=== PATIENT | female | born 1985 | race Caucasian/White ===

== ENCOUNTER → 2023-09-04 03:15 | Outpatient (CLI) | payer MEDICAID, SELFPAY ==
--- NOTE | 2023-09-04 07:15 | DI.MAMMO_ITS ---
Exam(s) US BREAST LT COMPLETE US BREAST RT COMPLETE MG MAMMO DIAGNOSTIC BI EXAM: MG MAMMO DIAGNOSTIC BI COMPLETE BILATERAL BREAST ULTRASOUND CLINICAL HISTORY: breast tenderness, pain,n64.4. TECHNIQUE: Both CC and MLO bilateral mammographic images were obtained with 3D tomosynthesis technAngel Medical Systems ue and utilizing computer aided detection (CAD). Complete bilateral breast ultrasound was performed including all 4 quadrants of both breasts as well as both axillary regions. COMPARISON: None. This is a baseline mammogram on this 37-year-old patient. She was complaining of breast pain and apparently her providers felt some peripherally located lumps in both breasts. The patient did not present to her provider with a self detected breast lump. FINDINGS: DIAGNOSTIC BILATERAL MAMMOGRAM: Fibroglandular tissue pattern is moderately dense. There are no CAD designations. There are no spiculated masses nor malignant-appearing microcalcification groups in either breast. No significant architectural distortion or skin thickening-retraction. THE BILATERAL BREAST ULTRASOUND: No evidence of solid or significant cystic lesions in all 4 quadrants. Scanning of the most lateral aspect of the breasts did not reveal significant focal findings including no evidence of prominent la teral thoracic lymph nodes. Scanning of both axillary regions is negative for adenopathy. IMPRESSION: 1. No radiographic evidence of malignancy. 2. Negative complete bilateral breast ultrasound The patient was informed of the findings by myself prior to leaving the department today. BI-RADS Category 1 - Negative Breast Density - Category C - Heterogeneously dense Breast density Category C or D implies that the patient has dense breast tissue. Dense breast tissue can make it harder to find cancer on a mammogram. Dense breast tissue is also associated with an incr eased risk of breast cancer. This information about the result of the mammogram report was provided to the patient to raise their awareness. Use this report when you speak with the patient about their risks for breast cancer, which includes their family history. At that time, you may recommend additional screening tests (Ultrasoun d or MRI) as these tests may add significant information. A negative radiographic report should not delay biopsy if a dominant or clinically suspicious mass is present. Up to ten percent of cancers are not identified on mammography. A negative report may reinforce clinical impression. Adenosis and dense breasts may obscure an underlying neoplasm. False positive reports average 6 to 10%. Patient will receive a letter notifying them of these results.
== END ==
PROVIDERS: PCP Nurse Practitioner Family; Visit Provider Nurse Practitioner Family
DX: N64.4 Mastodynia (principal); Z12.31 Encounter for screening mammogram for malignant neoplasm of breast
CPT/HCPCS: 76642; 77062; 77066; G0279

== ENCOUNTER 2023-12-13 09:51 | Outpatient (CLI) | payer MEDICAID, SELFPAY ==
--- NOTE | 2023-12-13 09:45 | RT.EKG_ITS ---
APPROVED REPORT Exam: Resting ECG Reason for Exam: on methadone Patient Location: O HR:77 bpm ECG Measurements Heart Rate 77 AXIS [place] 147 P 8 QRSd 99 QRS 1 QT 384 T 11 QTc 435 Conclusion Sinus rhythm...normal P axis, V-rate 50- 99 Normal Electrocardiogram
== END 2023-12-13 09:52 | disposition home or self-care (01) ==
LOC: DI.CM 09:59
PROVIDERS: PCP Nurse Practitioner Family; Visit Provider Nurse Practitioner Family
DX: R55 Syncope and collapse (principal)
CPT/HCPCS: 93010

== ENCOUNTER 2023-12-13 09:54 | Outpatient (CLI) | payer MEDICAID, SELFPAY ==
[2023-12-13 12:10] LABS: HCT 39.1 % (36.0-46.0); HGB 12.9 g/dL (11.2-15.7); MCH 29.8 pg (27.0-33.0); MCV 90 fL (80-95); MPV 11.7 fL (8.0-11.0); Platelet Count 249 10^3/uL (130-400); RBC 4.33 10^6/uL (3.93-5.22); RDW-SD 42.6 fL; WBC 4.36 10^3/uL (4.4-10.8)
[2023-12-13 12:20] LABS: Hemoglobin A1C 5.3 % (<5.7)
[2023-12-13 12:51] LABS: ALT 25 U/L (14-59); AST 16 U/L (15-37); Albumin 3.6 g/dL (3.4-5.0); Alkaline Phosphatase 85 U/L (46-116); Anion Gap 10.6 mmol/L (3-11); BUN 8 mg/dL (7-18); Bilirubin, Total 0.27 mg/dL (0.2-1.0); CO2 23.4 mmol/L (21.0-32.0); CREATININE 0.9 mg/dL (0.55-1.02); Calcium 8.9 mg/dL (8.5-10.1); Chloride 105 mmol/L (98-107); Estimated GFR 84.97 (mL/min/1.73m2); Glucose 105 mg/dL (74-106); Potassium 4.4 mmol/L (3.5-5.1); Sodium 139 mmol/L (136-145); TSH (W/Ref FT4) 2.55 uIU/mL (0.36-3.74); Total Protein 6.6 g/dL (6.4-8.2)
== END 2023-12-13 09:55 | disposition home or self-care (01) ==
LOC: LOS 09:54
PROVIDERS: PCP Nurse Practitioner Family; Referring Provider Nurse Practitioner Family; Visit Provider Nurse Practitioner Family
DX: R55 Syncope and collapse (principal); R11.2 Nausea with vomiting, unspecified; K59.09 Other constipation
CPT/HCPCS: 36415; 80053; 85027; 83036; 84443

== ENCOUNTER 2024-02-29 15:47 | Outpatient (REF) | payer MEDICAID, SELFPAY ==
--- NOTE | 2024-02-29 15:46 | PAPFT_PTH ---
PATIENT: Dana Disla LOC: [facility] U#:[id number] AGE/SX: 38/F ROOM: RE02/29/[address]: Lamar Martino MD : 1985 BED: DIS: 02/29/2024 SPEC #: [id number] RECD: 03/01/24 13:40 STATUS: SARMAD REDeepti #: [id number] OLLIE: 02/29/24 15:[address]: Lamar Martino DEPT: [facility] Cytology RECD BY: Miriam Mello ENTERED: 03/01/24 13:40 SP TYPE: PAPFT OTHR DR: Fidel Velazquez DNP Tissues: 1 - CX/ENDOCX FOR PAP SMEARS Procedures: PAP THIN PREP/UVM Screening HPV DNA PROBE Comments: [id number] (HPVF 16 & 18/45)
== END 2024-02-29 15:48 | disposition home or self-care (01) ==
LOC: LBN 15:47
PROVIDERS: PCP Nurse Practitioner Family; Visit Provider Obstetrics & Gynecology
DX: N92.0 Excessive and frequent menstruation with regular cycle (principal); Z31.69 Encounter for other general counseling and advice on procreation; Z13.21 Encounter for screening for nutritional disorder; Z01.419 Encounter for gynecological examination (general) (routine) without abnormal findings; Z87.42 Personal history of other diseases of the female genital tract
CPT/HCPCS: 88142; 87624

== ENCOUNTER 2024-03-05 11:01 | Outpatient (CLI) | payer MEDICAID, SELFPAY ==
[2024-03-05 12:22] LABS: Abs Immature Grans 0.01 10^3/uL (0.0-0.06); Absolute Basophil Count 0.07 10^3/uL (0.0-0.2); Absolute Eosinophil Count 0.13 10^3/uL (0.0-0.7); Absolute Lymphocyte Count 1.91 10^3/uL (1.2-3.4); Absolute Monocyte Count 0.46 10^3/uL (0.1-0.8); Absolute Neutrophil Count 3.01 10^3/uL (1.2-6.7); Basophils % 1.3 %; Eosinophils % 2.3 %; HCT 37.1 % (36.0-46.0); HGB 12.7 g/dL (11.2-15.7); Immature Grans % 0.2 %; Lymphocytes % 34.2 %; MCH 29.8 pg (27.0-33.0); MCHC 34.2 % (32.0-36.0); MCV 87 fL (80-95); MPV 11.8 fL (8.0-11.0); Monocytes % 8.2 %; Neutrophils % 53.8 %; Platelet Count 293 10^3/uL (130-400); RBC 4.26 10^6/uL (3.93-5.22); RDW 12.8 % (11.7-14.6); RDW-SD 40.3 fL; WBC 5.59 10^3/uL (4.4-10.8)
[2024-03-05 12:35] LABS: ALT 31 U/L (14-59); AST 16 U/L (15-37); Alkaline Phosphatase 99 U/L (46-116); Anion Gap 11.4 mmol/L (3-11); BUN 12 mg/dL (7-18); Bilirubin, Total 0.49 mg/dL (0.2-1.0); CO2 24.6 mmol/L (21.0-32.0); CREATININE 0.8 mg/dL (0.55-1.02); Calcium 9.2 mg/dL (8.5-10.1); Chloride 102 mmol/L (98-107); Estimated GFR 97.87 (mL/min/1.73m2); Glucose 125 mg/dL (74-106); Potassium 4.2 mmol/L (3.5-5.1); Sodium 138 mmol/L (136-145); Total Protein 7.2 g/dL (6.4-8.2)
[2024-03-05 12:51] LABS: TSH (W/Ref FT4) 1.65 uIU/mL (0.36-3.74); Vitamin D 25 Total 13.4 ng/mL (30-100)
[2024-03-05 18:29] LABS: Estradiol 56 pg/mL (See Note)
[2024-03-05 18:39] LABS: Prolactin 10.2 ng/mL (See Note)
== END 2024-03-05 11:02 | disposition home or self-care (01) ==
LOC: LOS 11:01
PROVIDERS: Obstetrics & Gynecology; PCP Nurse Practitioner Family; Visit Provider Nurse Practitioner Family
DX: R10.2 Pelvic and perineal pain (principal); N92.0 Excessive and frequent menstruation with regular cycle; Z31.69 Encounter for other general counseling and advice on procreation; N92.6 Irregular menstruation, unspecified; Z13.21 Encounter for screening for nutritional disorder
CPT/HCPCS: 36415; 80053; 82306; 82670; 83001; 84146; 84443; 85025

== ENCOUNTER 2024-03-05 15:18 | Outpatient (REF) | payer MEDICAID, SELFPAY ==
[2024-03-05 21:41] LABS: Bilirubin Negative (Negative); Blood Negative (Negative); Clarity Turbid (Clear); Glucose Negative (Negative); Ketones Negative (Negative); Leukocyte Esterase Negative (Negative); Nitrite Negative (Negative); Specific Gravity >= 1.030 (1.005-1.025); Urobilinogen 0.2 mg/dL (Up to 0.2)
== END 2024-03-05 15:19 | disposition home or self-care (01) ==
LOC: LBN 15:18
PROVIDERS: PCP Nurse Practitioner Family; Visit Provider Nurse Practitioner Family
DX: R39.9 Unspecified symptoms and signs involving the genitourinary system (principal); R10.2 Pelvic and perineal pain
CPT/HCPCS: 81003

== ENCOUNTER 2024-03-12 00:50 | Outpatient (CLI) | payer MEDICAID, SELFPAY ==
--- NOTE | 2024-03-12 07:30 | DI.US_ITS ---
Exam(s) US RENAL PELVIC TRANSVAGINAL EXAM: US RENAL PELVIC TRANSVAGINAL CLINICAL HISTORY: INFERTILITY COUNSELING,INCOMPLETE BLADDER EMPTYING,Z31.69,R33.9 TECHNIQUE: Ultrasound of the pelvis was performed both transabdominal and transvaginal. COMPARISON: US US BREAST LT COMPLETE from 09/04/2023 FINDINGS: KIDNEYS: Both kidneys exhibit normal size, cortical thickness, and corticomedullary differentiation. There are no renal cysts nor solid renal masses. No calculi. No hydronephrosis. No perinephric fl uid. URINARY BLADDER: Prevoid volume 113 cc. Postvoid volume 4 cc. Bladder wall thickness is upper zahra l. No obvious masses nor obvious calculi in the urinary bladder. No intraluminal sludge. Both uret erovesical jets were identified. UTERUS: Anteverted Measures 5.5 cm length x 3.5 cm AP x 5.9 cm wide. There are no uterine fibroids. Endometrial thickness measures 10-11 mm and exhibits homogeneous echotexture. There is no fluid in t he endometrial canal. CERVIX: There are no obvious nabothian cysts. RIGHT OVARY: Measures 2.8 x 1.9 x 2.3 cm Small sub cm follicular cysts noted in the right ovary. No solid masses. LEFT OVARY: Measures 3x 2.7 x 2.7 cm No significant cysts nor masses evident in the left ovary. There is a 1.3 x 1.4 cm cyst in the left ovary. Probably follicular. CUL-DE-SAC: No free fluid evident. IMPRESSION: 1. Normal appearing uterus and age-appropriate endometrium. 2. No abnormal ovarian findings. 13 x 14 mm cyst in the left ovary is probably dominant follicle 3. No free fluid in the pelvis. 4. No significant ultrasound findings in the kidneys and urinary bladder. DATA REPOSITORY:
== END 2024-03-12 01:10 ==
LOC: DI 00:50
PROVIDERS: PCP Nurse Practitioner Family; Visit Provider Obstetrics & Gynecology
DX: Z31.69 Encounter for other general counseling and advice on procreation (principal); R33.9 Retention of urine, unspecified
CPT/HCPCS: 76770; 76830; 76856

== ENCOUNTER 2024-05-12 17:29 | Emergency (ER) | payer MEDICAID, SELFPAY ==
[2024-05-12 17:31] VITALS: BP 136/79; PULSE 90; RESP 20; TEMP 36.6; O2SAT 98
[2024-05-12 17:34] VITALS: BP 136/79; PULSE 90; RESP 20; TEMP 36.6; O2SAT 98
--- OUTSIDE RECORDS SUMMARY | 2024-05-12 17:40 | XMS_ITS | Encounter Summary ---
Author Organization [facility] Address [address] [place] [address] Care Team Providers Care Warehouse Shipping Clerk Name Role Phone Unavailable Primary Care Provider Unavailabl e Encounter Details Date Type Department Care Team (Late st Contact Info) Description 03/04/2024 Lab Requisition [facility] Pathology & Laboratory Medicine - [facility] [address] [place] [address] Lamar Martino MD [address] [place] [address] [place] [address] Encounter for other general examination Social History Tobacco Use Types Packs/Day Years Used Date Smoking Tobacco: Never Assessed Comments Unknown Sex and Gender Information Value Date Recorded Sex Assigned at Not on file Legal Sex Female 15:57 EST Gender Identity Not on file Sexual Orientation Not on file documented as of this encounter Plan of Treatment Not on file documented as of this encounter Procedures Procedure Name Priority Date/Time Associated Diagnosis Comments PAP TEST Today 02/29/2024 15:46 EST Encounter for other general examination HPV DNA DETECTION WITH GENOTYPING, PCR Today 02/29/2024 15:46 EST Encounter for other general examination documented in this encounter Results * HPV DNA DETECTION WITH GENOTYPING, PCR (02/29/2024 15:46 EST) HPV High Risk type 16, PCR Negative Negative 03/12/2024 13:51 EST [facility] HPV High Risk type 18, PCR Negative Negative 03/12/2024 13:51 EST [facility] HPV other High Risk types, PCR Negative Negative 03/12/2024 13:51 EST [facility] Comment: The following Other High Risk HPV types were not detected: ??31,33, 35, 39, 45, 51, 52, 56, 58, 59, 66 and 68. Pap Test CERVIX UTERI STRUCTURE / Unknown 02/29/2024 15:46 EST 03/11/2024 11:16 EST us Lamar Martino MD MICROBIOLOGY - GENERAL ORDER WILEY Final Result [facility] [address] [place] [address] * PAP TEST (02/29/2024 15:46 EST) Specimens A. Cervix and/or Endocervix , ThinPrep Imaging System with Manual Evaluation 03/12/2024 13:51 [facility] Specimen Adequacy Satisfactory for Evaluation - transformation zone component present 03/12/2024 13:51 [facility] General Categorization Negative for intraepithelial lesion or malignancy 03/12/2024 13:51 [facility] Descriptive Diagnosis Shift in giovanny present suggestive of bacterial vaginosis. 03/12/2024 13:51 [facility] Attestation . 03/12/2024 13:51 [facility] at 1351 Clinical History See below 03/12/20 13:51 [facility] Performing Lab [facility] 03/12/2024 13:51 [facility] Scanned Images 03/12/2024 13:51 [facility] HPV High Risk type 16, PCR Negative 03/12/2024 13:51 [facility] HPV High Risk type 18, PCR Negative 03/12/2024 13:51 [facility] HPV Other High Risk Types, PCR Negative The following Other High Risk HPV types were not detected: 31,33, 35, 39, 45, 51, 52, 56, 58, 59, 66 and 68. 03/12/2024 13:51 [facility] Pap Test CERVIX UTERI STRUCTURE / Unknown 02/29/2024 15:46 EST 03/04/2024 15:58 EST us Lamar Martino MD PATHOLOGY ORDERABLES Final R esult [facility] [address] [place] [id number] documented in this encounter Visit Diagnoses Diagnosis Encounter for other general examination documented in this encounter
--- OUTSIDE RECORDS SUMMARY | 2024-05-12 17:40 | XMS_ITS | Referral Summary ---
Author Organization [facility] Address [address] [place] [address] Care Team Providers Care Director Health Name Role Phone Unavailable Primary Care Provider Unavailabl e Encounters Date Type Department Care Team Description 03/05/2024 Lab Requisition [facility] Pathology & Laboratory [facility] [address] [place] [address] Outr Resulting Lab, Provider 03/04/2024 Lab Requisition [facility] Pathology & Laboratory [address] [address] Lamar Martino MD Encounter for other general examination from Last 3 Months Social History Tobacco Use Types Packs/Day Years Used Date Smoking Tobacco: Never Assessed Comments Unknown Sex and Gender Information Value Date Recorded Sex Assigned at Not on file Legal Sex Female 15:57 EST Gender Identity Not on file Sexual Orientation Not on file Plan of Treatment Not on file Procedures Procedure Name Priority Date/Time Associated Diagnosis Comments FSH Routine 03/05/2024 11:10 EST PROLACTIN Routine 03/05/2024 11:10 EST ESTRADIOL, ADULTS Routine 03/05/2024 11: 10 EST PAP TEST Today 02/29/2024 15:46 EST Encounter for other general examination HPV DNA DETECTION WITH GENOTYPING, PCR Today 02/29/2024 15:46 EST Encounter for other general examination from Last 3 Months Results * PROLACTIN (03/05/2024 11:10 EST) Prolactin 10.2 See Note ng/mL 03/05/2024 18:34 EST [facility] Comment: NOTE: Female Reference Ranges: PHYSIOLOGICAL STATUS ?REFERENCE RANGE ? Postmenopausal ?1.8 - 20.3 ng/mL ?9.7 - 208.5 ng/mL Non- ?2.8 - 29.2 ng/mL Blood VENOUS BLOOD / Unknown 03/05/2024 11:10 EST 03/05/2024 17:47 EST us Provider Outr Resulting Lab CHEMISTRY & BLOOD GA S ORDERABLES Final Result [facility] [address] [place] [address] * ESTRADIOL, ADULTS (03/05/2024 11:10 EST) Estradiol 56 See Note pg/mL 03/05/2024 18:24 EST [facility] Comment: NOTE: FEMALE REFERENCE RANGES: MENSTRUATING ? By cycle day relative to LH peak Follicular ?(-12 to -4 days) ??20-144 pg/mL Midcycle ?(-3 to +2 days) ?? 64-357 pg/mL Luteal ?(+4 to +12 days) ??56-214 pg/mL POSTMENOPAUSAL ?<32 pg/mL *Cross reactivity with Fulvestrant could lead to a falsely elevated estradiol result in patients treated with this drug. Blood VENOUS BLOOD / Unknown 03/05/2024 11:10 EST 03/05/2024 17:47 EST us Provider Outr Resulting Lab CHEMISTRY & BLOOD GA S ORDERABLES Final Result Performing Organization Address [facility] Co de Phone Number [facility] [address] [place] [address] * FSH (03/05/2024 11:10 EST) FSH 14.0 See Note mIU/mL 03/05/2024 18:34 EST [facility] Blood VENOUS BLOOD / Unknown 03/05/2024 11:10 EST 03/05/2024 17:47 EST Narrative [facility] - 03/05/2024 18:34 EST NOTE: Female FSH Reference Ranges (Menstruating): PHYSIOLOGICAL STATUS ? REFERENCE RANGE ? Follicular (-12 to -4 days): ?? 2.5 - 10.2 mIU/mL Midcycle (-3 to +2 days): ?3.4 - 33.4 mIU/mL Luteal (+4 to +12 days): ? 1.5 - 9.1 mIU/mL Postmenopausal: ?23.0 - 116.3 mIU/mL Reference Ranges for pediatric non-menstruating female patients have not been established. Provider Outr Resulting Lab CHEMISTRY & BLOOD GA S ORDERABLES Final Result Performing Organization Address City/[facility]/ZIP Co de Phone Number [facility] [address] [place], [place] [id number] * PAP TEST (02/29/2024 15:46 EST) Specimens A. Cervix and/or Endocervix , ThinPrep Imaging System with Manual Evaluation 03/12/2024 13:51 EST [facility] Specimen Adequacy Satisfactory for Evaluation - transformation zone component present 03/12/2024 13:51 [facility] General Categorization Negative for intraepithelial lesion or malignancy 03/12/2024 13:51 [facility] Descriptive Diagnosis Shift in giovanny present suggestive of bacterial vaginosis. 03/12/2024 13:51 [facility] Attestation . 03/12/2024 13:51 [facility] at 1351 Clinical History See below 03/12/20 13:51 [facility] Performing Lab [facility] 03/12/2024 13:51 [facility] Scanned Images 03/12/2024 13:51 [facility] HPV High Risk type 16, PCR Negative 03/12/2024 13:51 [facility] HPV High Risk type 18, PCR Negative 03/12/2024 13:51 [facility] HPV Other High Risk Types, PCR Negative The following Other High Risk HPV types were not detected: 31,33, 35, 39, 45, 51, 52, 56, 58, 59, 66 and 68. 03/12/2024 13:51 [facility] Pap Test CERVIX UTERI STRUCTURE / Unknown 02/29/2024 15:46 EST 03/04/2024 15:58 EST us Lamar Martino MD PATHOLOGY ORDERABLES Final R esult [facility] [address] [place] [phone] * HPV DNA DETECTION WITH GENOTYPING, PCR (02/29/2024 15:46 EST) HPV High Risk type 16, PCR Negative Negative 03/12/2024 13:51 [facility] HPV High Risk type 18, PCR Negative Negative 03/12/2024 13:51 [facility] HPV other High Risk types, PCR Negative Negative 03/12/2024 13:51 [facility] Comment: The following Other High Risk HPV types were not detected: ??31,33, 35, 39, 45, 51, 52, 56, 58, 59, 66 and 68. Pap Test CERVIX UTERI STRUCTURE / Unknown 02/29/2024 15:46 EST 03/11/2024 11:16 EST us Lamar Martino MD MICROBIOLOGY - GENERAL ORDER WILEY Final Result [facility] [address] [place] [address] from Last 3 Months
--- OUTSIDE RECORDS SUMMARY | 2024-05-12 17:40 | XMS_ITS | Encounter Summary ---
Author Organization [facility] Address [address] [place] [address] Care Team Providers Care Dance Hall Host/Hostess Name Role Phone Unavailable Primary Care Provider Unavailabl e Encounter Details Date Type Department Care Team (Late st Contact Info) Description 03/05/2024 Lab Requisition [facility] Pathology & Laboratory Medicine - [facility] [address] [place] [address] Outr Resulting Lab, Provider Social History Tobacco Use Types Packs/Day Years [...] Procedure Name Priority Date/Time Associated Diagnosis Comments PROLACTIN Routine 03/05/2024 11:10 EST ESTRADIOL, ADULTS Routine 03/05/2024 11: 10 EST FSH Routine 03/05/2024 11:10 EST documented in this encounter Results * FSH (03/05/2024 11:10 EST) FSH 14.0 See Note mIU/mL 03/05/2024 18:34 EST [facility] Blood VENOUS BLOOD / Unknown 03/05/2024 11:10 EST 03/05/2024 17:47 EST Narrative [facility] - 03/05/2024 18:34 EST [...] non-menstruating female patients have not been established. us Provider Outr Resulting Lab CHEMISTRY & BLOOD GA S ORDERABLES Final Result Performing Organization Address [facility]/State/ZIP Co de Phone Number [facility] [address] [place] [address] * PROLACTIN (03/05/2024 11:10 EST) [facility] Prolactin 10.2 See Note ng/mL 03/05/2024 18:34 EST [facility] Comment: NOTE: Female Reference Ranges: PHYSIOLOGICAL STATUS ?REFERENCE RANGE ? Postmenopausal ?1.8 - 20.3 ng/mL ?9.7 - 208.5 ng/mL Non- ?2.8 - 29.2 ng/mL Blood VENOUS BLOOD / Unknown 03/05/2024 11:10 EST 03/05/2024 17:47 EST us Provider Outr Resulting Lab CHEMISTRY & BLOOD GA S ORDERABLES Final Result Performing Organization Address [facility]/ZIP Co de Phone Number [facility] [address] [place] [address] * ESTRADIOL, ADULTS (03/05/2024 11:10 EST) Estradiol 56 See Note pg/mL 03/05/2024 18:24 EST [facility] Comment: NOTE: FEMALE REFERENCE [...] S ORDERABLES Final Result Performing Organization Address [facility]/ZIP Co de Phone Number [facility] [address] [place] [address] documented in this encounter Visit Diagnoses Not on filedocumented in this encounter
--- OUTSIDE RECORDS SUMMARY | 2024-05-12 17:40 | XMS_ITS | Clinical Summary ---
Author Organization [facility] Address [address] [place] [address] Care Team Providers Care Mat Making Machine Tender Name Role Phone Unavailable Primary Care Provider Unavailabl e Encounters Date Type Department Care Team Description 03/05/2024 Lab Requisition [facility] Pathology & Laboratory [address] [address] Outr Resulting Lab, Provider 03/04/2024 Lab Requisition [facility] Pathology & Laboratory [address] [address] Lamar Martino MD Encounter for other general examination from Last 3 Months Social History Tobacco Use Types Packs/Day Years Used Date Smoking Tobacco: Never Assessed Comments Unknown Sex and Gender Information Value Date Recorded Sex Assigned at Not on file Legal Sex Female 15:57 EST Gender Identity Not on file Sexual Orientation Not on file Plan of Treatment Health Maintenance Due Date Last Done Comments Hepatitis C Screen 1985 Hepatitis B Vaccine (1 of 3 - 19+ 3-dose series) 10/13 COVID-19 Vaccine ( season) 2023 Procedures Procedure Name Priority Date/Time Associated Diagnosis [...] 10.2 See Note ng/mL 03/05/2024 18:[address] [facility] Comment: NOTE: Female Reference Ranges: PHYSIOLOGICAL STATUS ?REFERENCE RANGE ? Postmenopausal ?1.8 - 20.3 ng/mL ?9.7 - 208.5 ng/mL Non- ?2.8 - 29.2 ng/mL Blood VENOUS BLOOD / Unknown 03/05/2024 11:10 EST 03/05/2024 17:47 EST us Provider Outr Resulting Lab CHEMISTRY & BLOOD GA S ORDERABLES Final Result Performing Organization Address City/State/[facility] Co de Phone Number [facility] [address] [place] [address] * ESTRADIOL, ADULTS (03/05/2024 11:10 EST) Pathologist [facility] Estradiol 56 See Note pg/mL 03/05/2024 18:[address] [facility] Comment: NOTE: FEMALE REFERENCE [...] Unknown 03/05/2024 11:10 EST 03/05/2024 17:47 EST Provider Outr Resulting Lab CHEMISTRY & BLOOD GA S ORDERABLES Final Result Performing Organization Address [facility] de Phone Number [facility] [address] [place] [address] * FSH (03/05/2024 11:10 EST) FSH 14.0 See Note mIU/mL 03/05/2024 18:[address] [facility] Blood VENOUS BLOOD / Unknown 03/05/2024 11:10 EST 03/05/2024 17:[address] [facility] - 03/05/2024 18:34 EST [...] S ORDERABLES Final Result Performing Organization Address [facility]/ZIP Co de Phone Number [facility] [address] [place] [address] * PAP TEST (02/29/2024 15:46 EST) Specimens A. Cervix and/or Endocervix , ThinPrep Imaging System with Manual Evaluation 03/12/2024 13:51 [facility] Specimen Adequacy Satisfactory for Evaluation - transformation zone component present 03/12/2024 13:51 [facility] General Categorization Negative for intraepithelial lesion or malignancy 03/12/2024 13:51 [facility] Descriptive Diagnosis Shift in giovanny present suggestive of bacterial vaginosis. 03/12/2024 13:51 [facility] Attestation . 03/12/2024 13:51 [facility] at 1351 Clinical History See below 03/12/20 13:51 [facility] Performing Lab [facility] 03/12/2024 13:51 [facility] Scanned Images 03/12/2024 13:51 [facility] HPV High Risk type 16, PCR Negative 03/12/2024 13:51 [facility] HPV High Risk type 18, PCR Negative 03/12/2024 13:51 [facility] HPV Other High Risk Types, PCR Negative The following Other High Risk HPV types were not detected: 31,33, 35, 39, 45, 51, 52, 56, 58, 59, 66 and 68. 03/12/2024 13:51 [facility] Pap Test CERVIX UTERI STRUCTURE / Unknown 02/29/2024 15:46 EST 03/04/2024 15:58 EST us Lamar Martino MD PATHOLOGY ORDERABLES Final R esult [facility] [address] [place] [address] * HPV DNA DETECTION WITH GENOTYPING, PCR (02/29/2024 15:46 EST) HPV High Risk type 16, PCR Negative Negative 03/12/2024 13:51 [facility] HPV High Risk type 18, PCR Negative Negative 03/12/2024 13:[address] [facility] HPV other High Risk types, PCR Negative Negative 03/12/2024 13:[address] [facility] Comment: The following Other High Risk HPV types were not detected: ??31,33, 35, 39, 45, 51, 52, 56, 58, 59, 66 and 68. Pap Test CERVIX UTERI STRUCTURE / Unknown 02/29/2024 15:46 EST 03/11/2024 11:16 EST us Lamar Martino MD MICROBIOLOGY - GENERAL ORDER WILEY Final Result [facility] [address] [place] [address] from Last 3 Months
--- NOTE | 2024-05-12 17:41 | ED.GENADUL_ITS ---
Discharge Plan Disposition Patient Disposition: Home Discharge Details Clinical Impression: COVID-19 Primary Care Provider: Fidel Brown ED Provider: Rosy Hinkle Home Meds and New Rx's Prescriptions: New benzonatate 100 mg capsule 100 mg PO TID PRNQty: 15 0RF Continued methadone 10 mg tablet 65 mg PO DAILY esomeprazole magnesium 40 mg capsule,delayed release(DR/EC) 40 mg PO DAILY Qty: 90 4RF linaclotide 290 mcg capsule 290 mcg PO DAILY Qty: 30 4RF cholecalciferol (vitamin D3) 50 mcg (2,000 unit) capsule 2,000 unit PO DAILY Qty: 90 4RF gabapentin 300 mg capsule 300 mg PO DAILY Qty: 90 4RF hydroxyzine HCl 50 mg tablet 50 mg PO QHS Qty: 90 0RF mirtazapine 30 mg tablet 30 mg PO DAILY Qty: 90 4RF ondansetron 4 mg tablet,disintegrating 4 mg PO Q6H PRN (Reason: nausea and vomiting) Qty: 20 0RF Discharge Instructions Additional Instructions: Your COVID-19 test was positive today. Please stay well hydrated, drinking plenty of fluids throughout the day. You may use ibuprofen 600 mg every 8 hours and tylenol 650 mg every 8 hours as needed for fever /chills or body aches. Get plenty of rest. Practice good handwashing and wear a mask in public if you are coughing to avoid spreading illness to others. You may use the Tessalon Perles as needed for cough. You may take 1 to 2 tablets every 8 hours as needed, do not exceed more than 6 tablets in 1 day. Return to emergency care if you develop difficulty breathing, chest pains, worsening of cough or fever after initial improvement, or if you are very worried and need to be rechecked again immediately. Stand Alone Forms: Work Release Referrals: Fidel Brown, JOEL [Primary Care Provider] - HPI General Date/Time Provider Initiated Documentation: 05/12/24 17:40 . HPI Narrative: Dana is a 38 year old female who presents to the emergency department today for evaluation of viral symptoms. She reports that she started feeling unwell 2 days ago, has had intermittent fever up to 101, body aches, headache, sore throat, bilateral ear pain/fullness, productive cough. She has been able to take p.o. without difficulty. Denies wheezing, drainage from ears, difficulty swallowing, abdominal pain, nausea/vomiting, change in bowel or bladder function. Does have some mild shortness of breath with exertion only. Past medical history is significant for GERD, asthma, PTSD, depression, and methadone use. Physical exam reassuring. Dana is alert and oriented, no acute distress. Moist mucous membranes. TMs pearly jain, translucent. No protrusion or pain with manipulation of pinna. No tonsillar hypertrophy or exudate. No cervical or submandibular lymphadenopathy. Easy work of breathing, lung sounds clear bilaterally. Normal heart sounds. History and presentation consistent with viral illness. No red flags concerning for acute bacterial infection, acute asthma exacerbation, dehydration, electr olyte imbalance, or other serious systemic illness requiring emergent diagnostic imaging or blood work at this time. I independently interpreted the following tests: COVID-positive. Flu and RSV negative. While in the emergency department, Dana received Tylenol and ibuprofen for body aches/discomfort and Tessalon Perles for cough. Work note provided. Based on timeline and lack of Alzain comorbidities, patient would not benefit from antiviral treatment at this time. Reviewed discharge instructions with patient, including symptomatic management and red flags indicating need for return to emergency care Related Data Home Medications ?Medication ?Instructions ?Recorded ?Confirmed gabapentin 300 mg capsule 300 mg PO DAILY #90 caps 11/16/23 05/12/24 hydroxyzine HCl 50 mg tablet 50 mg PO QHS #90 tabs 11/16/23 05/12/24 mirtazapine 30 mg tablet 30 mg PO DAILY #90 tabs 11/16/23 05/12/24 esomeprazole magnesium 40 mg 40 mg PO DAILY #90 caps 12/13/23 05/12/24 capsule,delayed release linaclotide 290 mcg capsule 290 mcg PO DAILY #30 caps 12/13/23 05/12/24 methadone 10 mg tablet 65 mg PO DAILY 12/13/23 05/12/24 cholecalciferol (vitamin D3) 50 2,000 unit PO DAILY #90 caps 03/07/24 05/12/24 mcg (2,000 unit) capsule ondansetron 4 mg disintegrating 4 mg PO Q6H PRN nausea and 04/18/24 05/12/24 tablet vomiting #20 tabs benzonatate 100 mg capsule 100 mg PO TID PRN #15 caps 05/12/24 Previous Rx's ?Medication ?Instructions ?Recorded gabapentin 300 mg capsule 300 mg PO DAILY #90 caps 11/16/23 hydroxyzine HCl 50 mg tablet 50 mg PO QHS #90 tabs 11/16/23 mirtazapine 30 mg tablet 30 mg PO DAILY #90 tabs 11/16/23 esomeprazole magnesium 40 mg 40 mg PO DAILY #90 caps 12/13/23 capsule,delayed release linaclotide 290 mcg capsule 290 mcg PO DAILY #30 caps 12/13/23 cholecalciferol (vitamin D3) 50 2,000 unit PO DAILY #90 caps 03/07/24 mcg (2,000 unit) capsule ondansetron 4 mg disintegrating 4 mg PO Q6H PRN nausea and 04/18/24 tablet vomiting #20 tabs benzonatate 100 mg capsule 100 mg PO TID PRN #15 caps 05/12/24 Allergies Allergy/AdvReac Type Severity Reaction Status Date / Time Sulfa (Sulfonamide Allergy Swelling/Ed Verified 05/12/24 17:36 Antibiotics) amaya vancomycin Allergy Swelling/Ed Verified 05/12/24 17:36 amaya General Stated Complaint: RespSymp SERINA: 4 Review of Systems Narrative: see HPI Exam Const General: cooperative, comfortable, well developed and well groomed Nutritional Appearance: average body habitus and well nourished Orientation: alert and oriented x3 HENMT Head: normal to inspection Ears: hearing grossly normal bilaterally, external ears normal, TM's normal bilaterally and EAC's normal General nose exam: external nose normal Face and sinus: normal facial exam Mouth: oral mucosae normal, tongue normal, oropharynx normal and moist mucous membranes Throat: posterior oropharynx normal, tonsils normal and uvula midline Neck Neck: normal visual inspection, full ROM and no lymphadenopathy Resp Effort & Inspection: normal respiratory effort, able to speak in complete sentences and cough (occasional) Auscultation: clear to auscultation bilaterally Cardio Rate: regular rate Rhythm: regular rhythm Skin General skin exam: no rashes or lesions noted Neuro General: patient alert, patient oriented x3, tone normal and moves all extremities Course Vital Signs Vital signs: Vital Signs Temperature 36.6 C 05/12/24 17:31 Pulse 90 05/12/24 17:31 Respiratory Rate 20 05/12/24 17:31 Blood Pressure 136/79 05/12/24 17:31 Pulse Oximetry 98 05/12/24 17:31 Temperature 36.6 C 05/12/24 17:34 Temperature Source Oral 05/12/24 17:34 Pulse 90 05/12/24 17:34 Respiratory Rate 20 05/12/24 17:34 Blood Pressure 136/79 05/12/24 17:34 Blood Pressure Position Sitting 05/12/24 17:34 Pulse Oximetry 98 05/12/24 17:34 Oxygen Delivery Method Room Air 05/12/24 17:34 Oxygen Flow Rate 0 05/12/24 17:34 Pain Level 5 05/12/24 17:34 Medical Decision Making Quality:SDOH Health Related Social Needs: No Data to Display PFSH All Active Problems (Updated 05/12/24 @ 18:21 by Rosy Nick) COVID-19 (Acute) Incomplete bladder emptying (Acute) Infertility counseling (Acute) Nausea and vomiting (Acute) Syncope (Chronic) Herpes (Acute) Eczema (Acute) Chronic constipation (Acute) Panic attack as reaction to stress (Acute) Major depressive disorder (Chronic) PTSD (post-traumatic stress disorder) (Acute) YULISSA (generalized anxiety disorder) (Acute) Asthma (Chronic) Pain of left calf (Acute) 01/07, tore calf muscle Left ankle pain (Acute) 12/06, rolled, bad sprain, no fx Carpal tunnel syndrome (Acute) Gastro-esophageal reflux (Chronic) Esophagitis (Acute) EDG 11/2017 Sleep apnea (Acute) Medical History (Updated 05/12/24 @ 18:21 by Rosy Nick) History of abnormal cervical Pap smear Cervical intraepithelial neoplasia III External hemorrhoid Hepatitis C Headache, tension-type Addiction h/o addiction. On Methadone - tapering. Surgical History (Updated 03/06/24 @ 15:55 by Linette Ellis RN) H/O dilation and curettage History of incision and drainage antecubal fossa Hx LEEP (loop electrosurgical excision procedure), cervix, Family History Maternal Grandmother Asthma Depression Anxiety Maternal Grandfather No problems noted. Brother Alcohol use disorder Asthma Anxiety Depression Substance use disorder Social History Smoking/Tobacco Use Status: Current every day Tobacco Type: cigarettes and e- cigarettes Tobacco: How many years used: 25 Quit status: considering quitting Second Hand Exposure: Yes Smoking risk assessment performed?: Yes Alcohol Intake: current Alcohol Intake frequency: holidays/special occasions only Alcohol type: wine Drug use: Never Substance use type: former substance user, crack/cocaine, heroin, opiates, painkillers, IV drugs and prescription drug Adopted: No Caregiver/Support person: No Household members: significant other, children and other Details: mother Housing: apartment Number of Children: 2 Communication Needs: None Education Level: other Details: GED Do you need help understanding health information?: Never 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 Sexually active: Yes Do you think of yourself as: straight/heterosexual Current gender identity: female What is your relationship status?: living with partner How often do you talk on the phone with friends or family?: three or more times per week How often do you get together with friends or relatives?: twice per week How often do you attend scientology or yarsani services?: decline to answer Do you belong to any clubs or organized social groups?: no Panel score (0-1 are the most socially isolated patients): 2 What type of physical activity do you participate in: walking Duration: 15-30 minutes/day Yesy/Jainism: spiritual Special yesy needs: No Seatbelt use: always Helmet use: Yes Drive intox 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 Date GA/Weeks # Preg Succ Route Wgt Sex Labor Lgth Anesth esia Location Prov Complic 11/04/06 37 Yes vaginal 3458.642 g Male Eduin ramirez [place] 04/23/09 Yes vaginal 3175.147 g Male J[place], [place] Delivery Date: 11/04/06 Last Updated by: SELIN Dinero Delivery Date: 04/23/09 Last Updated by: SELIN Dinero
[2024-05-12] MEDS: Acetaminophen 325 MG TAB 650 MG PO (17:56)
[2024-05-12] MEDS: Ibuprofen 600 MG TAB PO (17:57)
[2024-05-12 18:16] LABS: COVID-19 PCR Positive (Negative); Influenza A PCR Negative (Negative); Influenza B PCR Negative (Negative); RSV PCR Negative (Negative); Source NASOPHARYNX
[2024-05-12] MEDS: Benzonatate 100 MG CAP PO ×2 (18:17)
== END 2024-05-12 18:31 | disposition home or self-care (01) ==
PROVIDERS: Emergency Provider Nurse Practitioner Family; PCP Nurse Practitioner Family
DX: U07.1 COVID-19 (principal); Z11.52 Encounter for screening for COVID-19
CPT/HCPCS: 87637; 99283

== ENCOUNTER 2024-07-31 15:40 | Emergency (ER) | payer MEDICAID, SELFPAY ==
[2024-07-31 15:41] VITALS: BP 159/106; PULSE 116; RESP 18; TEMP 36.6; O2SAT 99
--- NOTE | 2024-07-31 16:00 | DI.RAD_ITS ---
Exam(s) XR THUMB RT EXAM: XR THUMB RT CLINICAL HISTORY: Shut in car door. TECHNIQUE: 2D digital imaging was performed. Three views. COMPARISON: No exams were available for comparison FINDINGS: BONES: Nondisplaced fracture at the tuft of the distal phalanx. No bony destructive lesion is seen. JOINTS: No dislocation present. SOFT TISSUE: Distal swelling. No foreign body. IMPRESSION: Nondisplaced tuft fracture. DATA REPOSITORY: RADIATION DOSE DELIVERED:
--- NOTE | 2024-07-31 17:13 | W.ED.GENAD ---
Discharge Plan Disposition Patient Disposition: Home Condition: Stable Discharge Details Clinical Impression: Closed fracture of tuft of distal phalanx of right thumb, Injury to thumb (nail) Primary Care Provider: Fidel Brown ED Provider: Kenya Jones Home Meds and New Rx's Prescriptions: New ibuprofen 800 mg tablet 800 mg PO Q8H PRNQty: 20 0RF No Action methadone 10 mg tablet 55 mg PO DAILY esomeprazole magnesium 40 mg capsule,delayed release(DR/EC) 40 mg PO DAILY Qty: 90 4RF linaclotide 290 mcg capsule 290 mcg PO DAILY Qty: 30 4RF cholecalciferol (vitamin D3) 50 mcg (2,000 unit) capsule 2,000 unit PO DAILY Qty: 90 4RF gabapentin 300 mg capsule 300 mg PO DAILY Qty: 90 4RF mirtazapine 30 mg tablet 30 mg PO DAILY Qty: 90 4RF hydroxyzine HCl 50 mg tablet 50 mg PO QHS Qty: 90 0RF ondansetron 4 mg tablet,disintegrating 4 mg PO Q6H PRN (Reason: nausea and vomiting) Qty: 20 0RF valacyclovir 500 mg tablet 500 mg PO BID Qty: 60 0RF Discharge Instructions Instructions: Finger Fracture ED Additional Instructions: You were seen in the emergency department today for evaluation after shutting your thumb in a car door, and were found to have a nondisplaced fracture of the end of your right thumb. You also have damage to the nail though the nail at the time of this provider's examination showed that it had not become displaced from the nail fold, though it is broken. You had a dressing placed as well as a splint, and should continue to wear the splint to prevent worsening of your injury for the next several weeks. These fractures do not require surgery, and should be managed with the splint, ice and elevation for swelling. Please use therapeutic dosing of Tylenol (acetaminophen) & Advil (ibuprofen) in an alternating fashion as follows: Take 1000mg of Tylenol every 6 hours without missing doses- that is 4 times per day. [place] in between the Tylenol doses, take 600-800mg of Advil also on a 6 hour schedule, that is also 4 times per day. With this strategy, you will be taking something for fever/pain as often as every 3 hours. The daily maximum dosing of Tylenol is 4000mg, and the daily maximum dosing of Advil is 2400mg. Please note that some common cold medications & prescription pain medications may contain acetaminophen and you need to read OTC drug labels and factor that in to maximum daily doses. You should change the dressing over the nailbed once per day, use a topical [id number] antibiotic ointment and a nonstick dressing. That nail is almost certainly going to fall off, and will take several weeks to months to grow back in typically. Please follow-up with your primary care provider in the next few days to discuss this visit and any symptoms that change, worsen, or persist. Thank you for allowing us to be part of your care. Stand Alone Forms: Work Release Discharge Data Discharge Date/Time-TO BE ENTERED AT DEPARTURE: 07/31/24 17:53 HPI General Mode of arrival: ambulatory. Date/Time Provider Initiated Documentation: 07/31/24 15:49. Limitations to Documentation: no limitations. Information obtained by: patient, family and old records reviewed. HPI Narrative: HPI: This is a 38-year-old female patient with a past medical history significant for PTSD, asthma, sleep apnea, presenting for evaluation of a right thumb injury. The patient is right-hand dominant, was closing the car door and accidentally closed her finger in the car door. She noted that the nail was broken and had significant pain and presented immediately to care. She did not take any medications for pain prior to arrival, did not injure any other part of her body, and was in her normal state of health prior to this incident. Last tetanus shot in 2018. Exam: Gen: Awake and alert, endorses anxiety and distress HEENT: Non-icteric sclera Neck: Supple Lungs: No apparent respiratory distress, normal respiratory effort. CV: Appears well perfused, strong distal pulses Abdomen: Non-distended MSK: Moves 4 extremities without apparent limitation in ROM. The patient has full range of motion of the affected right thumb, does have a broken nail but the eponychium and the nail within the nail fold has not been disturbed. I note no large nailbed lacerations, does have tenderness to palpation of the distal phalanx of the right thumb. Brisk capillary refill, no active bleeding, preserved sensation Skin: Visualized skin without rashes, cyanosis. Neuro: Normal Gait, no obvious focal deficits or facial asymmetry. Speaks in full, clear sentences. Psych: Appropriate for situation. MDM: This is a 38-year-old female patient presenting for evaluation after shutting her thumb in the car door. Differential includes but is not limited to contusion, fracture, considered nailbed injury and nail fold injury though reassuringly this is not evidenced on physical examination. This is an isolated injury, and there is no evidence of neurovascular derangement. Her tetanus shot is up-to-date. We will obtain an x-ray of the affected right thumb. I provided the patient with Tylenol and ibuprofen for management of pain. ED Course: X-ray reveals a nondisplaced distal tuft fracture of the affected right thumb. Given that the nail fold was not disrupted, I placed Xeroform over the exposed nailbed, and placed the thumb in a splint. I counseled the patient to perform dressing changes, utilizing [id number] antibiotic ointment to prevent sticking, and to wear the splint while awaiting fracture healing over the next several weeks. At this time, the patient has had a full medical evaluation and is safe for discharge to home. They are hemodynamically stable, ambulatory, and tolerating PO. They are understanding of the follow-up plan and return precautions. They left our facility without incident. Kenya Jones MD Related Data Home Medications ?Medication ?Instructions ?Recorded ?Confirmed gabapentin 300 mg capsule 300 mg PO DAILY #90 caps 11/16/23 07/15/24 mirtazapine 30 mg tablet 30 mg PO DAILY #90 tabs 11/16/23 07/15/24 esomeprazole magnesium 40 mg 40 mg PO DAILY #90 caps 12/13/23 07/15/24 capsule,delayed release linaclotide 290 mcg capsule 290 mcg PO DAILY #30 caps 12/13/23 07/15/24 cholecalciferol (vitamin D3) 50 2,000 unit PO DAILY #90 caps 03/07/24 07/15/24 mcg (2,000 unit) capsule hydroxyzine HCl 50 mg tablet 50 mg PO QHS #90 tabs 07/02/24 07/15/24 ondansetron 4 mg disintegrating 4 mg PO Q6H PRN nausea and 07/02/24 07/15/24 tablet vomiting #20 tabs valacyclovir 500 mg tablet 500 mg PO BID #60 tabs 07/12/24 07/15/24 methadone 10 mg tablet 55 mg PO DAILY 07/15/24 07/15/24 ibuprofen 800 mg tablet 800 mg PO Q8H PRN #20 tabs 07/31/24 Previous Rx's ?Medication ?Instructions ?Recorded gabapentin 300 mg capsule 300 mg PO DAILY #90 caps 11/16/23 mirtazapine 30 mg tablet 30 mg PO DAILY #90 tabs 11/16/23 esomeprazole magnesium 40 mg 40 mg PO DAILY #90 caps 12/13/23 capsule,delayed release linaclotide 290 mcg capsule 290 mcg PO DAILY #30 caps 12/13/23 cholecalciferol (vitamin D3) 50 2,000 unit PO DAILY #90 caps 03/07/24 mcg (2,000 unit) capsule hydroxyzine HCl 50 mg tablet 50 mg PO QHS #90 tabs 07/02/24 ondansetron 4 mg disintegrating 4 mg PO Q6H PRN nausea and 07/02/24 tablet vomiting #20 tabs valacyclovir 500 mg tablet 500 mg PO BID #60 tabs 07/12/24 ibuprofen 800 mg tablet 800 mg PO Q8H PRN #20 tabs 07/31/24 Allergies Allergy/AdvReac Type Severity Reaction Status Date / Time Sulfa (Sulfonamide Allergy Swelling/Ed Verified 07/31/24 15:48 Antibiotics) amaya vancomycin Allergy Swelling/Ed Verified 07/31/24 15:48 amaya General Stated Complaint: Orthopedic SERINA: 3 Course Vital Signs Vital signs: Vital Signs Temperature 36.6 C 07/31/24 15:41 Pulse 116 H 07/31/24 15:41 Respiratory Rate 18 07/31/24 15:41 Blood Pressure 159/106 H 07/31/24 15:41 Pulse Oximetry 99 07/31/24 15:41 Temperature 36.6 C 07/31/24 15:41 Pulse 116 H 07/31/24 15:41 Respiratory Rate 18 07/31/24 15:41 Blood Pressure 159/106 H 07/31/24 15:41 Blood Pressure Position Sitting 07/31/24 15:41 Pulse Oximetry 99 07/31/24 15:41 Oxygen Delivery Method Room Air 07/31/24 15:41 Oxygen Flow Rate 0 07/31/24 15:41 Pain Level 7 07/31/24 15:41 Medical Decision Making Quality:SDOH Health Related Social Needs: No Data to Display PFSH All Active Problems (Updated 07/31/24 @ 17:14 by Kenya Jones MD) Injury to thumb (nail) (Acute) Closed fracture of tuft of distal phalanx of right thumb (Acute) COVID-19 (Acute) Incomplete bladder emptying (Acute) Infertility counseling (Acute) Nausea and vomiting (Acute) Syncope (Chronic) Herpes (Acute) Eczema (Acute) Chronic constipation (Acute) Panic attack as reaction to stress (Acute) Major depressive disorder (Chronic) PTSD (post-traumatic stress disorder) (Acute) YULISSA (generalized anxiety disorder) (Acute) Asthma (Chronic) Pain of left calf (Acute) 01/07, tore calf muscle Left ankle pain (Acute) 12/06, rolled, bad sprain, no fx Carpal tunnel syndrome (Acute) Gastro-esophageal reflux (Chronic) Esophagitis (Acute) EDG 11/2017 Sleep apnea (Acute) Medical History History of abnormal cervical Pap smear Cervical intraepithelial neoplasia III External hemorrhoid Hepatitis C Headache, tension-type Addiction h/o addiction. On Methadone - tapering. Surgical History H/O dilation and curettage History of incision and drainage antecubal fossa Hx LEEP (loop electrosurgical excision procedure), cervix, Family History Maternal Grandmother Asthma Depression Anxiety Maternal Grandfather No problems noted. Brother Alcohol use disorder Asthma Anxiety Depression Substance use disorder Social History Smoking/Tobacco Use Status: Current every day Tobacco Type: cigarettes and e-cigarettes Tobacco: How many years used: 25 Quit status: considering quitting Second Hand Exposure: Yes Smoking risk assessment performed?: Yes Alcohol Intake: current Alcohol Intake frequency: holidays/special occasions only Alcohol type: wine Drug use: Never Substance use type: former substance user, crack/cocaine, heroin, opiates, painkillers, IV drugs and prescription drug Adopted: No Caregiver/Support person: No Household members: significant other, children and other Details: mother Housing: apartment Number of Children: 2 Communication Needs: None Education Level: other Details: GED Do you need help understanding health information?: Never 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 Sexually active: Yes Do you think of yourself as: straight/heterosexual Current gender identity: female What is your relationship status?: living with partner How often do you talk on the phone with friends or family?: three or more times per week How often do you get together with friends or relatives?: twice per week How often do you attend zoroastrianism or taoism services?: decline to answer Do you belong to any clubs or organized social groups?: no Panel score (0-1 are the most socially isolated patients): 2 What type of physical activity do you participate in: walking Duration: 15-30 minutes/day Yesy/Anabaptism: spiritual Special yesy needs: No Seatbelt use: always Helmet use: Yes 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 Date GA/Weeks # Preg Succ Route Wgt Sex Labor Lgth Anesthesia Location Prov Complic 11/04/06 37 Yes vaginal 3458.642 g Male NASEEM [place] 04/23/09 Yes vaginal 3175.147 g Male NASEEM [place] Delivery Date: 11/04/06 Last Updated by: SELIN Dinero Delivery Date: 04/23/09 Last Updated by: SELIN Dinero
[2024-07-31] MEDS: Ibuprofen 800 MG TAB PO (17:45)
[2024-07-31] MEDS: Acetaminophen 500 MG TAB 1000 MG PO (17:45)
[2024-07-31 17:48] VITALS: BP 135/72; PULSE 89; RESP 18; O2SAT 99
--- NOTE | 2024-08-05 13:15 | NUR.NOTE ---
Patient called requesting that the provider note and the xray report be faxed to [facility] for ongoing care. This was done.Nursing Note:
== END 2024-07-31 17:53 | disposition home or self-care (01) ==
PROVIDERS: Emergency Provider Emergency Medicine; PCP Nurse Practitioner Family
DX: S62.521A Displaced fracture of distal phalanx of right thumb, initial encounter for closed fracture (principal); W23.2XXA Caught, crushed, jammed or pinched between a moving and stationary object, initial encounter
CPT/HCPCS: 26750; 81025; 99283; 73140

== ENCOUNTER 2024-10-17 17:41 | Outpatient (REF) | payer MEDICAID, SELFPAY | END 2024-10-17 17:42 | disposition home or self-care (01) | LOC: LBN 17:41 | PROVIDERS: PCP Nurse Practitioner Family; Visit Provider Physician Assistant | DX: N39.0 Urinary tract infection, site not specified (principal) | CPT/HCPCS: 87086 ==

== ENCOUNTER 2025-02-25 15:15 | Outpatient (REF) | payer MEDICAID, SELFPAY | END 2025-02-25 15:16 | disposition home or self-care (01) | LOC: LBN 15:15 | PROVIDERS: PCP Nurse Practitioner Family; Visit Provider Physician Assistant | DX: N39.0 Urinary tract infection, site not specified (principal) | CPT/HCPCS: 87077; 87086; 87186 ==

== ENCOUNTER → 2025-03-21 00:19 | Outpatient (CLI) | payer MEDICAID, SELFPAY ==
--- NOTE | 2025-03-21 06:15 | DI.RAD_ITS ---
Exam(s) XR KNEE LT 3V AP,LAT,ESEQUIEL EXAM: XR KNEE LT 3V AP,LAT,ESEQUIEL CLINICAL HISTORY: left knee pain,M25.562. TECHNIQUE: 2D digital imaging was performed. COMPARISON: No exams were available for comparison FINDINGS: 3 views No evidence of acute fracture. There is a minimal amount of increased joint fluid noted. Bone density normal. No osseous lesions. No degenerative joint space narrowing. IMPRESSION: No acute osseous findings in the knee. Small amount of increased joint fluid noted. DATA REPOSITORY: RADIATION DOSE DELIVERED:
== END ==
LOC: DI 00:19
PROVIDERS: PCP Nurse Practitioner Family; Visit Provider Physician Assistant
DX: M25.562 Pain in left knee (principal)
CPT/HCPCS: 73562